=== PATIENT | female | born 1935 | race Caucasian/White ===

== ENCOUNTER → 2017-09-20 | Outpatient (CLI) | payer MEDICARE ==
[~2017-09-20] MED LIST: ACET325T14 PO; ASPI-496 PO; ATEN25TA PO; BACL-19 PO; CHOL10002 PO; FIBER CAPSULE PO; GABA300C10 PO; NIFE30TA25 PO; OMEP-110 PO; OXYC10TA6 PO; PROBIOTIC GUMMIES PO; RIVA20TA PO; SENN1TAB67 PO; SLEEP AID PO
[2017-09-20 15:41] LABS: BASOPHILS # (AUTO) 0.03 x10^3/uL (0-0.1); BASOPHILS % (AUTO) 1 % (0-1); EOSINOPHILS # (AUTO) 0.19 x10^3/uL (0-0.4); EOSINOPHILS % (AUTO) 4 % (1-7); LYMPHOCYTES # (AUTO) 1.38 x10^3/uL (1-3.4); LYMPHOCYTES % (AUTO) 27 % (22-44); MD NO; MEAN CORPUSCULAR HEMOGLOBIN 31.7 pg (27.0-34.8); MEAN CORPUSCULAR HGB CONC 33.8 g/dL (32.4-35.8); MEAN CORPUSCULAR VOLUME 93.7 fL (80-100); MEAN PLATELET VOLUME 8.8 fL (7.4-10.4); MONOCYTES # (AUTO) 0.42 x10^3/uL (0.2-0.8); MONOCYTES % (AUTO) 8 % (2-9); NEUTROPHILS # (AUTO) 3.14 x10^3/uL (1.8-6.8); NEUTROPHILS % (AUTO) 61 % (42-75); PLATELET COUNT 210 x10^3/uL (130-400); RED CELL DISTRIBUTION WIDTH 13.3 % (9.6-15.2)
[2017-09-20 15:51] LABS: ALANINE AMINOTRANSFERASE 24 U/L (12-78); ALBUMIN 3.8 g/dL (3.4-5.0); ANION GAP 7 mmol/L (5-15); CALCIUM 8.9 mg/dL (8.5-10.1); CHLORIDE 109 mmol/L (98-107); CREATININE 0.98 mg/dL (0.55-1.02)
[2017-09-20 15:53] LABS: ALKALINE PHOSPHATASE 72 U/L (45-117); BILIRUBIN,TOTAL 0.4 mg/dL (0.2-1.0)
== END ==
LOC: CFH 12:13
PROVIDERS: ATTEND Specialist
DX: C50.912 Malignant neoplasm of unspecified site of left female breast (principal)
CPT/HCPCS: 36415; 80053; 85025; 77065

== ENCOUNTER → 2018-04-02 | Outpatient (CLI) | payer MEDICARE | END | disposition home or self-care (01) | LOC: CFH 08:38 | PROVIDERS: ATTEND Internal Medicine Cardiovascular Disease | DX: I08.1 Rheumatic disorders of both mitral and tricuspid valves (principal); I10 Essential (primary) hypertension; I48.91 Unspecified atrial fibrillation | CPT/HCPCS: 93306 ==

== ENCOUNTER → 2018-04-08 | Outpatient (CLI) | payer MEDICARE | END | disposition home or self-care (01) | LOC: CFH 11:35 | PROVIDERS: ATTEND Internal Medicine Geriatric Medicine | DX: I48.0 Paroxysmal atrial fibrillation (principal); K44.9 Diaphragmatic hernia without obstruction or gangrene; Z95.2 Presence of prosthetic heart valve; Z95.0 Presence of cardiac pacemaker | CPT/HCPCS: 71046 ==

== ENCOUNTER → 2018-04-11 | Outpatient (CLI) | payer MEDICARE ==
[2018-04-11 12:32] LABS: BASOPHILS # (AUTO) 0.02 x10^3/uL (0-0.1); BASOPHILS % (AUTO) 0 % (0-1); EOSINOPHILS # (AUTO) 0.19 x10^3/uL (0-0.4); EOSINOPHILS % (AUTO) 4 % (1-7); LYMPHOCYTES % (AUTO) 27 % (22-44); MD NO; MEAN CORPUSCULAR HEMOGLOBIN 31.7 pg (27.0-34.8); MEAN CORPUSCULAR HGB CONC 33.7 g/dL (32.4-35.8); MEAN PLATELET VOLUME 8.5 fL (7.4-10.4); MONOCYTES # (AUTO) 0.48 x10^3/uL (0.2-0.8); MONOCYTES % (AUTO) 10 % (2-9); NEUTROPHILS # (AUTO) 2.77 x10^3/uL (1.8-6.8); NEUTROPHILS % (AUTO) 58 % (42-75); PLATELET COUNT 196 x10^3/uL (130-400); RED CELL DISTRIBUTION WIDTH 13.5 % (9.6-15.2)
[2018-04-11 13:17] LABS: CHLORIDE 111 mmol/L (98-107)
[2018-04-11 13:34] LABS: % IRON SATURATION 38 % (20-55); ALANINE AMINOTRANSFERASE 21 U/L (12-78); ALBUMIN 3.8 g/dL (3.4-5.0); ALKALINE PHOSPHATASE 69 U/L (45-117); ANION GAP 7 mmol/L (5-15); BILIRUBIN,TOTAL 0.4 mg/dL (0.2-1.0); CALCIUM 8.9 mg/dL (8.5-10.1); IRON LEVEL 108 mcg/dL (50-170); TOTAL IRON BINDING CAPACITY 285 mcg/dL (250-450); TOTAL PROTEIN 7.1 g/dL (6.4-8.2)
== END | disposition home or self-care (01) ==
LOC: CFH 11:36
PROVIDERS: ATTEND Internal Medicine Cardiovascular Disease
DX: C50.919 Malignant neoplasm of unspecified site of unspecified female breast (principal); E78.5 Hyperlipidemia, unspecified; I10 Essential (primary) hypertension; Z95.0 Presence of cardiac pacemaker
CPT/HCPCS: 36415; 80053; 83540; 83550; 85025

== ENCOUNTER 2019-02-11 10:35 | Emergency (ER) | payer MEDICARE ==
[~2019-02-11] VITALS: Ht 162.6 cm; Wt 84.6 kg
[~2019-02-11 10:35] MED LIST changes: +SULF1TAB24 PO
[2019-02-11] MEDS ORDERED: DIAZEPAM 5 MG TABLET PO STA (11:08)
[2019-02-11] MEDS ORDERED: DIAZEPAM 5 MG TABLET ONE (11:27)
--- NOTE | 2019-02-11 11:35 | NUR ---
PT MEDICATED PER ERP ORDER. PT ASSISTED WITH REPOSITIONING AND WARM BLANKET AND PILLOW PROVIDED, LIGHTS TURNED OFF. FAMILY AT BS, CALL LIGHT WITHIN REACH.
[2019-02-11 11:36] LABS: BASOPHILS # (AUTO) 0.01 x10^3/uL (0-0.1); BASOPHILS % (AUTO) 0 % (0-1); EOSINOPHILS # (AUTO) 0.04 x10^3/uL (0-0.4); EOSINOPHILS % (AUTO) 1 % (1-7); LYMPHOCYTES # (AUTO) 0.86 x10^3/uL (1-3.4); LYMPHOCYTES % (AUTO) 21 % (22-44); MD NO; MEAN CORPUSCULAR HEMOGLOBIN 31.9 pg (27.0-34.8); MEAN CORPUSCULAR HGB CONC 33.3 g/dL (32.4-35.8); MEAN CORPUSCULAR VOLUME 95.8 fL (80-100); MEAN PLATELET VOLUME 8.4 fL (7.4-10.4); MONOCYTES # (AUTO) 0.17 x10^3/uL (0.2-0.8); MONOCYTES % (AUTO) 4 % (2-9); NEUTROPHILS # (AUTO) 3.04 x10^3/uL (1.8-6.8); NEUTROPHILS % (AUTO) 74 % (42-75); PLATELET COUNT 194 x10^3/uL (130-400); RED BLOOD COUNT 4.29 x10^6/uL (3.82-5.3)
[2019-02-11 11:45] LABS: ALBUMIN 3.4 g/dL (3.4-5.0); ANION GAP 6 mmol/L (5-15); CALCIUM 8.3 mg/dL (8.5-10.1); CHLORIDE 112 mmol/L (98-107); CREATININE 0.75 mg/dL (0.55-1.02)
--- NOTE | 2019-02-11 12:49 | NUR ---
ADD ON XR ORDERED. CALL LIGHT WITHIN REACH. PT UP NEEDED TO BR WITH SBA.
--- NOTE | 2019-02-11 13:30 | NUR ---
FAMILY INQUIRY REGARDING TIMING OF ESOPHAGRAM. CALL TO XR ABOUT DELAY. PER XR, ROOM BEING TERMINALLY CLEANED WITH AVAILABILITY IN 10 MINUTES. FAMILY INFORMED. PT STATES SHE'S COMFORTABLE AT THIS TIME, "TAKING A LITTLE NAP". CALL LIGHT WITHIN REACH, ADDITIONAL WARM BLANKET PROVIDED.
--- NOTE | 2019-02-11 13:41 | NUR ---
PT TO RADIOLOGY.
[2019-02-11 14:48] VITALS: BP 129/65
== END 2019-02-11 15:40 | disposition home or self-care (01) ==
LOC: ED 12:38
DX: K44.9 Diaphragmatic hernia without obstruction or gangrene (principal); I10 Essential (primary) hypertension; I48.91 Unspecified atrial fibrillation; K21.9 Gastro-esophageal reflux disease without esophagitis; Z72.89 Other problems related to lifestyle
CPT/HCPCS: 36415; 71045; 74220; 80048; 82040; 85025; 93005; 99284

== ENCOUNTER → 2019-04-21 | Outpatient (CLI) | payer MEDICARE ==
[2019-04-21 12:20] LABS: BASOPHILS # (AUTO) 0.02 x10^3/uL (0-0.1); BASOPHILS % (AUTO) 1 % (0-1); EOSINOPHILS % (AUTO) 3 % (1-7); LYMPHOCYTES # (AUTO) 1.05 x10^3/uL (1-3.4); LYMPHOCYTES % (AUTO) 27 % (22-44); MD NO; MEAN CORPUSCULAR HEMOGLOBIN 30.8 pg (27.0-34.8); MEAN CORPUSCULAR HGB CONC 33.6 g/dL (32.4-35.8); MEAN CORPUSCULAR VOLUME 91.8 fL (80-100); MEAN PLATELET VOLUME 8.2 fL (7.4-10.4); MONOCYTES # (AUTO) 0.29 x10^3/uL (0.2-0.8); MONOCYTES % (AUTO) 8 % (2-9); NEUTROPHILS # (AUTO) 2.38 x10^3/uL (1.8-6.8); NEUTROPHILS % (AUTO) 62 % (42-75); PLATELET COUNT 209 x10^3/uL (130-400); RED BLOOD COUNT 4.34 x10^6/uL (3.82-5.3); RED CELL DISTRIBUTION WIDTH 13.8 % (9.6-15.2)
[2019-04-21 12:59] LABS: ANION GAP 7 mmol/L (5-15); CALCIUM 8.5 mg/dL (8.5-10.1); CHLORIDE 111 mmol/L (98-107)
[2019-04-21 13:05] LABS: CHOL/HDL RATIO 3.4; CHOLESTEROL, TOTAL 240 mg/dL (140-239); CREATININE 0.94 mg/dL (0.55-1.02); HDL CHOL % 30 % (28-40); HDL CHOLESTEROL (DIRECT) 71 mg/dL (40-60); LDL CHOLESTEROL,CALCULATED 157 mg/dL (54-169); LDL/HDL RATIO 2.2 (0.5-3.0); TRIGLYCERIDES 58 mg/dL (50-200); VLDL CHOLESTEROL 12 mg/dL (0-25)
== END | disposition home or self-care (01) ==
LOC: CFH 08:55
PROVIDERS: ATTEND Nurse Practitioner Family
DX: I48.0 Paroxysmal atrial fibrillation (principal); I10 Essential (primary) hypertension; R60.9 Edema, unspecified; Z95.0 Presence of cardiac pacemaker; Z95.2 Presence of prosthetic heart valve
CPT/HCPCS: 36415; 80048; 80061; 83880; 85025

== ENCOUNTER → 2019-04-28 | Outpatient (CLI) | payer MEDICARE | END | disposition home or self-care (01) | LOC: CVU 14:33 | PROVIDERS: ATTEND Nurse Practitioner Family | DX: I08.1 Rheumatic disorders of both mitral and tricuspid valves (principal); I11.9 Hypertensive heart disease without heart failure; I48.0 Paroxysmal atrial fibrillation; I25.3 Aneurysm of heart | CPT/HCPCS: 93306; 93356 ==

== ENCOUNTER 2019-05-03 08:11 | Emergency (ER) | payer MEDICARE ==
[~2019-05-03] VITALS: Ht 162.6 cm; Wt 85.0 kg
--- NOTE | 2019-05-03 08:37 | NUR ---
Patient from Triage, AA&O x 4, reports feeling a sudden onset of Left sided chest pain around 0300 this morning. Pain is intermittent with movement reports occasional SOB. RR even and unlabored. Family at bedside. Call light with in reach. Lab at bedside. EKG completed in Triage
[2019-05-03 08:58] LABS: ALANINE AMINOTRANSFERASE 14 U/L (12-78); ALBUMIN 3.2 g/dL (3.4-5.0); ANION GAP 9 mmol/L (5-15); CALCIUM 8.2 mg/dL (8.5-10.1); CHLORIDE 110 mmol/L (98-107); CREATININE 0.88 mg/dL (0.55-1.02)
[2019-05-03 09:00] LABS: BASOPHILS # (AUTO) 0.02 x10^3/uL (0-0.1); BASOPHILS % (AUTO) 1 % (0-1); EOSINOPHILS # (AUTO) 0.04 x10^3/uL (0-0.4); EOSINOPHILS % (AUTO) 1 % (1-7); LYMPHOCYTES # (AUTO) 0.82 x10^3/uL (1-3.4); LYMPHOCYTES % (AUTO) 25 % (22-44); MD NO; MEAN CORPUSCULAR HEMOGLOBIN 30.4 pg (27.0-34.8); MEAN CORPUSCULAR HGB CONC 32.7 g/dL (32.4-35.8); MEAN PLATELET VOLUME 8.2 fL (7.4-10.4); MONOCYTES # (AUTO) 0.21 x10^3/uL (0.2-0.8); MONOCYTES % (AUTO) 7 % (2-9); NEUTROPHILS # (AUTO) 2.17 x10^3/uL (1.8-6.8); NEUTROPHILS % (AUTO) 67 % (42-75); PLATELET COUNT 186 x10^3/uL (130-400); RED CELL DISTRIBUTION WIDTH 13.6 % (9.6-15.2)
[2019-05-03 09:02] LABS: ALKALINE PHOSPHATASE 74 U/L (45-117); BILIRUBIN,TOTAL 0.4 mg/dL (0.2-1.0); TOTAL PROTEIN 6.5 g/dL (6.4-8.2); TROPONIN I < 0.015 ng/mL (0.000-0.045)
--- NOTE | 2019-05-03 09:20 | NUR ---
Patient provide two warm blankets for comfort family at bedside NAD noted.
--- NOTE | 2019-05-03 09:28 | NUR ---
Break RN note: Dr. Conteh at bedside to evaluate pt and discuss POC.
[2019-05-03] MEDS ORDERED: SODIUM CHLORIDE FLUSH 10ML SYR IVF PRN (10:00)
[2019-05-03] MEDS ORDERED: KETOROLAC 30 MG/1 ML IVPush ONE (10:00)
[2019-05-03] MEDS ORDERED: KETOROLAC 30 MG/1 ML ONE (10:14)
[2019-05-03] MEDS ORDERED: KETOROLAC 30 MG/1 ML IM ONE (10:30)
--- NOTE | 2019-05-03 10:46 | NUR ---
Patient medicated per order. Reports pain still with movement. ambualtory with assist to restroom. Patient uses a walker at home.
[2019-05-03 11:22] VITALS: BP 144/72
--- NOTE | 2019-05-03 11:40 | NUR ---
Discharged home. DIscharge instructions provided. All questions and concerns addressed. Left via wheelchair, uses a walker at home. , son and daughter in law also provided with the discharge instructions. Pain persistent on the left side of chest worse with movement provider is aware. no change in plan of care. Family plans to call PCM in the morning. All patient belongings left with patient. RR even and unlabored. VSS.
== END 2019-05-03 11:43 | disposition home or self-care (01) ==
LOC: ED 08:43
DX: R07.2 Precordial pain (principal); I10 Essential (primary) hypertension; E78.5 Hyperlipidemia, unspecified; K21.9 Gastro-esophageal reflux disease without esophagitis
CPT/HCPCS: 36415; 71045; 80053; 83880; 84484; 85025; 93005; 96372; 99284; J1885

== ENCOUNTER 2020-09-25 08:39 | Emergency (ER) | payer MEDICARE ==
[~2020-09-25] VITALS: Ht 162.6 cm; Wt 85.0 kg
[~2020-09-25 08:39] MED LIST changes: +SULF-23 PO; -SULF1TAB24 PO
[2020-09-25] MEDS ORDERED: MAALOX/HYOSCYAMINE/LIDOCAINE 45 ML BTL PO ONE (09:00)
[2020-09-25] MEDS ORDERED: SODIUM CHLORIDE 0.9% 1,000ML IVBOLUS ONE (09:00)
[2020-09-25] MEDS ORDERED: LOPERAMIDE 2 MG CAPSULE PO ONE (09:00)
[2020-09-25] MEDS ORDERED: SODIUM CHLORIDE FLUSH 10ML SYR IVF ONE (09:00)
[2020-09-25] MEDS ORDERED: LOPERAMIDE 2 MG CAPSULE ONE (09:02)
[2020-09-25] MEDS ORDERED: MAALOX/HYOSCYAMINE/LIDOCAINE 45 ML BTL ONE (09:02)
--- NOTE | 2020-09-25 09:17 | NUR ---
PT ON ALL ROOM MONITORING. MEDS GIVEN PER ERP ORDER. NS BOLUS INFUSING. CALL LIGHT WITHIN REACH. FAMILY AT BS. COMMODE AT BS ALSO D/T PT REPORT OF FREQUENT TRIPS TO BR LAST NIGHT.
[2020-09-25 09:28] LABS: BASOPHILS % (AUTO) 1 % (0-1); EOSINOPHILS % (AUTO) 1 % (1-7); LYMPHOCYTES % (AUTO) 30 % (22-44); MEAN CORPUSCULAR HEMOGLOBIN 31.2 pg (27.0-34.8); MEAN CORPUSCULAR HGB CONC 34.9 g/dL (32.4-35.8); MEAN PLATELET VOLUME 8.9 fL (7.4-10.4); MONOCYTES % (AUTO) 8 % (2-9); NEUTROPHILS % (AUTO) 59 % (42-75); PLATELET COUNT 120 x10^3/uL (130-400); RED BLOOD COUNT 4.17 x10^6/uL (3.82-5.3); RED CELL DISTRIBUTION WIDTH 14.3 % (9.6-15.2)
[2020-09-25 09:31] LABS: ANION GAP 8 mmol/L (5-15); CALCIUM 7.9 mg/dL (8.5-10.1); CHLORIDE 110 mmol/L (98-107); CREATININE 0.63 mg/dL (0.55-1.02)
--- NOTE | 2020-09-25 09:45 | NUR ---
NO STOOL, NO ABD PAIN. VSS/UPDATED IN COMPUTER. ALL RESULTS BACK, PT FOR RECHECK.
--- NOTE | 2020-09-25 09:58 | NUR ---
PT UP TO BSC, LOOSE YELLOW-BROWN STOOL COLLECTED. ERP NOTIFIED. STOOL SPECIMEN WALKED TO LAB. CALL LIGHT WITHIN REACH.
--- NOTE | 2020-09-25 10:20 | NUR ---
ADD ON ORDER FOR CT
[2020-09-25] MEDS ORDERED: OMNIPAQUE 350 MG/ML, 100ML BOTTLE ONE (10:27)
--- NOTE | 2020-09-25 11:05 | NUR ---
CT RESULTS BACK. CONTINUE TO AWAIT STOOL RESULTS.
[2020-09-25 11:14] LABS: CLOSTRIDIUM DIFFICILE ANTIGEN NEGATIVE; CLOSTRIDIUM DIFFICILE TOXIN NEGATIVE (Negative)
[2020-09-25 11:23] LABS: CRYPTOSPORIDIUM ANTIGEN Negative (Negative)
[2020-09-25 11:50] VITALS: BP 105/65
== END 2020-09-25 11:52 | disposition home or self-care (01) ==
LOC: ED 10:54
DX: R19.7 Diarrhea, unspecified (principal); R10.31 Right lower quadrant pain; I10 Essential (primary) hypertension; K21.9 Gastro-esophageal reflux disease without esophagitis; I48.91 Unspecified atrial fibrillation; E78.5 Hyperlipidemia, unspecified
CPT/HCPCS: 36415; 74177; 80048; 82040; 85025; 87046; 87324; 87328; 87329; 87427; 93005; 96360; 99285; J7030; Q9967